=== PATIENT | male | born 1950 | race Caucasian/White ===

== ENCOUNTER 2017-10-24 14:38 | Emergency (ER) | payer MEDICARE, BC ==
[2017-10-24] MEDS ORDERED: ESCI20TA38 PO (15:04)
[2017-10-24 15:40] LABS: PLATELET COUNT, AUTOMATED 186 K/uL (150-450)
[2017-10-24] MEDS ORDERED: LORazepam 1 MG TAB PO ONE (16:35)
--- NOTE | 2017-10-24 17:38 | EKG ---
FACILITY: [facility] - [place] PATIENT NAME: NILESH SOUSA : [id number] MR: [id number] V: [id number] EXAM DATE: ORDERING PHYSICIAN: CRISTI GARCIA TECHNOLOGIST: Test Reason : Blood Pressure : / mmHG Vent. Rate : 073 BPM Atrial Rate : 073 BPM P-R Int : 162 ms QRS Dur : 112 ms QT Int : 434 ms P-R-T Axes : 019 054 002 degrees QTc Int : 478 ms Normal sinus rhythm but cannot rule out an atrial sensing ventricular pacing in the middle of the QRS T inversion consistent with inferior ischemia Possible Inferior infarct , age undetermined Abnormal ECG No previous ECGs available Confirmed by FCO FULLER ([id number]) on 10/24/2017 9:46:59 PM Referred By: Confirmed By:FCO FULLER
[2017-10-24 18:00] VITALS: BP 130/94
--- NOTE | 2017-10-24 18:02 | RADIOLOGY IMAGING REPORT ---
FACILITY: [facility] - [place], [place] PATIENT NAME: Vaibhav De Jesus : 1950 MR: [id number] V: [id number] EXAM DATE: ORDERING PHYSICIAN: CRISTI GARCIA TECHNOLOGIST: Location: [facility] [place] Patient: Vaibhav De Jesus : 1950 Visit/Account:[id number] Date of Sevice: 10/24/2017 CT OF THE BRAIN WITHOUT CONTRAST HISTORY: Acute change in personality. PROCEDURE: 3.0 mm contiguous axial sections were performed through the brain. Sagittal and coronal r eformats were submitted. COMPARISON: None FINDINGS: BRAIN: Brain and intracranial structures: There is no mass lesion or hemorrhage. Small foci of hypoattenuati on in the high right posterior white matter most likely reflect chronic ischemic change. There is a s imilar appearance on the left. The ventricles are normal in size without midline shift. Sulcal defini tion is normal. Orbits (included portions): Unremarkable. Scalp: Normal Skull: No fracture identified. The kernel is not optimal. Paranasal sinuses and mastoid air cells (included portions): Minimal mucosal thickening in the parana gabriela sinuses. IMPRESSION: 1. No evidence of acute intracranial abnormality by CT. 2. Minimal hypoattenuation in the high white matter of both hemispheres likely represents chronic isc hemic change. One of the following dose optimization techniques was utilized in the performance of this exam: Autom ated exposure control; adjustment of the mA and/or kV according to the patient's size; or use of an i terative reconstruction technique. Specific details can be referenced in the facility's radiology C T exam operational policy. Report Dictated By: Quita Post MD at 10/24/2017 5:52 PM Report E-Signed By: Quita Post MD at 10/24/2017 5:59 PM WSN:[id number]
--- NOTE | 2017-10-24 18:22 | ER Report ---
History and Physical Time Seen By MD: 16:00 Hx. of Stated Complaint: new onset anxiety/depression HPI/ROS This is a 67-year-old male who 3 months ago was diagnosed with pre-diabetes. Ever since that time he has become increasingly more anxious and depressed. He does not take medication for diabetes, but controls it with diet only. He has become so anxious that he is refusing to leave his home. He most recently released vague suicidal ideations to his family as well. He has also been experiencing involuntary limb shaking, not consistent with seizures, that his family says is associated with anxiety. His family is at the bedside, and they have encouraged the patient to be voluntarily admitted to behavioral health for depression, severe anxiety, and vague suicidal ideations. The patient does not deny his behavioral health issues. He denies any other physical complaints or problems. Remainder of the 14 system rev: Yes Allergies: Coded Allergies: Penicillins (Verified Allergy, Mild, 10/24/17) acetaminophen (Verified Allergy, Mild, 10/24/17) hydrocodone (Verified Allergy, Mild, 10/24/17) Home Meds Reported Medications Escitalopram Oxalate (LEXAPRO) 20 Mg Tablet, 20 MG PO QDAY, TAB 10/24/17 Reviewed Nurses Notes: Yes Old Medical Records Reviewed: Yes Hx Smoking: No Smoking Status: Never Smoker Exposure to Second Hand Smoke?: No Hx Substance Use Disorder: No Hx Alcohol Use: No Constitutional Vital Sign - Last 24 Hours 10/24/17 14:57 Temp 98.6 Pulse 80 Resp 16 B/P (MAP) 141/83 Pulse Ox 93 O2 Delivery Room Air Physical Exam General Appearance: The patient is alert, has no immediate need for airway protection and no current signs of toxicity. Eyes: Pupils equal and round no injection. Respiratory: Chest is non tender, lungs are clear to auscultation. Cardiac: regular rate and rhythm Gastrointestinal: Abdomen is soft and non tender, no masses, bowel sounds normal. Extremities have full range of motion and are non tender. He exhibits random shaking of his limbs. Skin: No rashes or lesions. DIFFERENTIAL DIAGNOSIS: After history and physical exam differential diagnosis was considered for depression including functional and major depression, situational depression, medication side effect, drugs and alcohol abuse. Medical Decision Making Data Points Result Diagram: 10/24/17 1526 10/24/17 1526 Laboratory Hematology Test 10/24/17 14:47 8/2/18 15:26 Urine Color Ayesha Urine Clarity Slightly-cloudy Urine pH 5.0 pH (4.8-9.5) Urine Specific [place] 1.026 Urine Protein Negative mg/dL (NEGATIVE) Urine Glucose (UA) Negative mg/dL (NEGATIVE) Urine Ketones Negative mg/dL (NEGATIVE) Urine Blood Negative (NEGATIVE) Urine Nitrite Negative (NEGATIVE) Urine Bilirubin Negative (NEGATIVE) Urine Urobilinogen 2.0 mg/dL (0.2-1.9) Urine Leukocyte Esterase Negative (NEGATIVE) Urine RBC 7 /HPF (0-2/HPF) Urine WBC 3 /HPF (0-5/HPF) Urine Squamous Epithelial Cells None /LPF (</=FEW) Urine Calcium Oxalate Crystals Moderate /HPF (NONE) Urine Bacteria Negative /HPF (NONE-FEW) Urine Hyaline Casts Few /LPF (NONE-FEW) Urine Mucus Few /HPF (NONE-FEW) Urine Opiates Screen Negative Urine Barbiturates Screen Negative Ur Tricyclic Antidepressants Screen Negative Urine Phencyclidine Screen Negative Urine Amphetamines Screen Negative Urine Benzodiazepines Screen Negative Urine Cocaine Screen Negative Urine Cannabinoids Screen Negative Red Blood Count 5.84 M/uL (4.00-5.60) Mean Corpuscular Volume 88.4 fL (80.0-96.0) Mean Corpuscular Hemoglobin 31.0 pg (26.0-33.0) Mean Corpuscular Hemoglobin Concent 35.1 g/dL (32.0-36.0) Red Cell Distribution Width 13.5 % (11.5-14.5) Mean Platelet Volume 9.9 fL (7.2-11.1) Neutrophils (%) (Auto) 66.5 % (39.4-72.5) Lymphocytes (%) (Auto) 23.1 % (17.6-49.6) Monocytes (%) (Auto) 7.8 % (4.1-12.4) Eosinophils (%) (Auto) 1.6 % (0.4-6.7) Basophils (%) (Auto) 1.0 % (0.3-1.4) Nucleated RBC Relative Count (auto) 0.0 /100WBC Neutrophils # (Auto) 5.5 K/uL (2.0-7.4) Lymphocytes # (Auto) 1.9 K/uL (1.3-3.6) Monocytes # (Auto) 0.6 K/uL (0.3-1.0) Eosinophils # (Auto) 0.1 K/uL (0.0-0.5) Basophils # (Auto) 0.1 K/uL (0.0-0.1) Nucleated RBC Absolute Count (auto) 0.00 K/uL Sodium Level 141 mmol/L (137-145) Potassium Level 3.8 mmol/L (3.5-5.0) Chloride Level 104 mmol/L (98-107) Carbon Dioxide Level 26 mmol/L (22-30) Blood Urea Nitrogen 15 mg/dl (9-21) Creatinine 0.90 mg/dl (0.66-1.25) Glomerular Filtration Rate Calc > 60.0 Random Glucose 106 mg/dl (75-110) Calcium Level 9.4 mg/dl (8.4-10.2) Magnesium Level 2.3 mg/dl (1.7-2.2) Total Bilirubin 1.2 mg/dl (0.2-1.3) Aspartate Amino Transf (AST/SGOT) 22 U/L (0-35) Alanine Aminotransferase (ALT/SGPT) 35 U/L (0-56) Alkaline Phosphatase 67 U/L (0-126) Total Protein 4.7 g/dl (6.3-8.2) Albumin 4.3 g/dl (3.5-5.0) Acetaminophen Level < 10 ug/ml Chemistry Test 10/24/17 14:47 10/24/17 15:26 Urine Color Ayesha Urine Clarity Slightly-cloudy Urine pH 5.0 pH (4.8-9.5) Urine Specific [place] 1.026 Urine Protein Negative mg/dL (NEGATIVE) Urine Glucose (UA) Negative mg/dL (NEGATIVE) Urine Ketones Negative mg/dL (NEGATIVE) Urine Blood Negative (NEGATIVE) Urine Nitrite Negative (NEGATIVE) Urine Bilirubin Negative (NEGATIVE) Urine Urobilinogen 2.0 mg/dL (0.2-1.9) Urine Leukocyte Esterase Negative (NEGATIVE) Urine RBC 7 /HPF (0-2/HPF) Urine WBC 3 /HPF (0-5/HPF) Urine Squamous Epithelial Cells None /LPF (</=FEW) Urine Calcium Oxalate Crystals Moderate /HPF (NONE) Urine Bacteria Negative /HPF (NONE-FEW) Urine Hyaline Casts Few /LPF (NONE-FEW) Urine Mucus Few /HPF (NONE-FEW) Urine Opiates Screen Negative Urine Barbiturates Screen Negative Ur Tricyclic Antidepressants Screen Negative Urine Phencyclidine Screen Negative Urine Amphetamines Screen Negative Urine Benzodiazepines Screen Negative Urine Cocaine Screen Negative Urine Cannabinoids Screen Negative White Blood Count 8.2 k/uL (4.5-11.0) Red Blood Count 5.84 M/uL (4.00-5.60) Hemoglobin 18.1 g/dL (14.0-18.0) Hematocrit 51.6 % (42.0-52.0) Mean Corpuscular Volume 88.4 fL (80.0-96.0) Mean Corpuscular Hemoglobin 31.0 pg (26.0-33.0) Mean Corpuscular Hemoglobin Concent 35.1 g/dL (32.0-36.0) Red Cell Distribution Width 13.5 % (11.5-14.5) Platelet Count 186 K/uL (150-450) Mean Platelet Volume 9.9 fL (7.2-11.1) Neutrophils (%) (Auto) 66.5 % (39.4-72.5) Lymphocytes (%) (Auto) 23.1 % (17.6-49.6) Monocytes (%) (Auto) 7.8 % (4.1-12.4) Eosinophils (%) (Auto) 1.6 % (0.4-6.7) Basophils (%) (Auto) 1.0 % (0.3-1.4) Nucleated RBC Relative Count (auto) 0.0 /100WBC Neutrophils # (Auto) 5.5 K/uL (2.0-7.4) Lymphocytes # (Auto) 1.9 K/uL (1.3-3.6) Monocytes # (Auto) 0.6 K/uL (0.3-1.0) Eosinophils # (Auto) 0.1 K/uL (0.0-0.5) Basophils # (Auto) 0.1 K/uL (0.0-0.1) Nucleated RBC Absolute Count (auto) 0.00 K/uL Glomerular Filtration Rate Calc > 60.0 Calcium Level 9.4 mg/dl (8.4-10.2) Magnesium Level 2.3 mg/dl (1.7-2.2) Total Bilirubin 1.2 mg/dl (0.2-1.3) Aspartate Amino Transf (AST/SGOT) 22 U/L (0-35) Alanine Aminotransferase (ALT/SGPT) 35 U/L (0-56) Alkaline Phosphatase 67 U/L (0-126) Total Protein 4.7 g/dl (6.3-8.2) Albumin 4.3 g/dl (3.5-5.0) Acetaminophen Level < 10 ug/ml Toxicology Test 10/24/17 14:47 10/24/17 15:26 Urine Opiates Screen Negative Urine Barbiturates Screen Negative Ur Tricyclic Antidepressants Screen Negative Urine Phencyclidine Screen Negative Urine Amphetamines Screen Negative Urine Benzodiazepines Screen Negative Urine Cocaine Screen Negative Urine Cannabinoids Screen Negative Acetaminophen Level < 10 ug/ml Urinalysis Test 10/24/17 14:47 Urine Color Ayesha Urine Clarity Slightly-cloudy Urine pH 5.0 pH (4.8-9.5) Urine Specific [place] 1.026 Urine Protein Negative mg/dL (NEGATIVE) Urine Glucose (UA) Negative mg/dL (NEGATIVE) Urine Ketones Negative mg/dL (NEGATIVE) Urine Blood Negative (NEGATIVE) Urine Nitrite Negative (NEGATIVE) Urine Bilirubin Negative (NEGATIVE) Urine Urobilinogen 2.0 mg/dL (0.2-1.9) Urine Leukocyte Esterase Negative (NEGATIVE) Urine RBC 7 /HPF (0-2/HPF) Urine WBC 3 /HPF (0-5/HPF) Urine Squamous Epithelial Cells None /LPF (</=FEW) Urine Calcium Oxalate Crystals Moderate /HPF (NONE) Urine Bacteria Negative /HPF (NONE-FEW) Urine Hyaline Casts Few /LPF (NONE-FEW) Urine Mucus Few /HPF (NONE-FEW) EKG/Imaging EKG Interpretation 12 lead EKG: Rhythm: normal sinus rhythm [place]: normal QRS: Incomplete right bundle-branch block with wide QRS ST segments: Nonspecific T wave changes [ ] Imaging Results: CT scan of the head was obtained. The results of the study are normal. The study was read by the radiologist. I viewed the images myself on the PACS system. ED Course/Re-evaluation ED Course 67-year-old male with no history of behavioral health problems self presents to the emergency department with his family at his side facing severe anxiety and vague suicidal ideations. The symptoms have been ongoing for 3 months since being diagnosed with prediabetes. He controls his prediabetes with diet and does not take any medications. His family states that he has become so anxious that he will not leave the house. He was started on Lexapro but with the patient and his family say that it has not made a difference. I do not find any organic cause for this acute change in behavior. His anxiety was minimally controlled with 2 mg of Ativan by mouth. He will be admitted to behavioral health for further workup. Decision to Disposition Date: Oct 24, 2017 Decision to Disposition Time: 18:21 Depart Departure Latest Vital Signs Vital Signs Date Time Temp Pulse Resp B/P (MAP) Pulse Ox O2 Delivery O2 Flow Rate FiO2 10/24/17 14:57 98.6 80 16 141/83 93 Room Air Impression: Primary Impression: Anxiety and depression Additional Impression: Passive suicidal ideations Condition: Improved Disposition: XFER TO [facility] Problem Qualifiers CRISTI GARCIA MD Oct 24, 2017 18:22
== END 2017-10-24 17:10 ==
LOC: ER 15:01
DX: F41.9 Anxiety disorder, unspecified (principal); F32.9 Major depressive disorder, single episode, unspecified; R45.851 Suicidal ideations; R25.1 Tremor, unspecified
CPT/HCPCS: 70450; 80305; 81001; 83735; 84443; 85025; 99284; A9270; G0480; 80329; 82040; 82247; 82310; 82374; 82435; 82565; 82947; 84075; 84132; 84155; 84295; 84450; 84460; 84520

== ENCOUNTER 2017-10-24 17:08 | Inpatient (IN) | payer MEDICARE, BC ==
[~2017-10-24] VITALS: Ht 182.9 cm; Wt 93.4 kg
[~2017-10-24 17:08] MED LIST: ESCI20TA38 PO
[2017-10-24] MEDS ORDERED: DIAZEPAM 10 MG TAB PO PRN (18:55)
[2017-10-24] MEDS ORDERED: MAG HYD/AL HYD/SIMETH 30ML UDC PO PRN (18:55)
[2017-10-24] MEDS ORDERED: ACETAMINOPHEN 325 MG TAB PO PRN (18:55)
[2017-10-25 06:31] VITALS: BP 140/84
[2017-10-25] MEDS: MULTIVITAMINS TAB PO SCH (08:09)
[2017-10-25] MEDS: DIAZEPAM 5 MG TAB PO SCH ×2 (12:30→21:00)
[2017-10-25 13:05] VITALS: BP 116/70
[2017-10-25 16:15] VITALS: BP 110/79
--- NOTE | 2017-10-25 16:15 | HISTORY AND PHYSICAL ---
DATE OF ADMISSION: October 24, 2017 Patient was seen at approximately 1000 hours on the a.m. of October 25, 2017 for note concerning this dictation. PRESENTING PROBLEM/CHIEF COMPLAINT Recent suicidal ideation and increasing anxiety. HISTORY OF PRESENT ILLNESS This is a very pleasant 67-year-old male who reports experiencing significant anxiety and following depression symptoms starting about 3 months ago. Patient interviewed, accompanied by his daughter and his . Patient very open and honest historian. Patient reports even thinking of suicide at times. Patient mentioning that before three months ago everything in his life was going fine. It was about this time patient was diagnosed with preclinical diabetic state. Patient's A1c was only mildly elevated at the time around 6.5 or so, however, patient has witnessed his mother from significant diabetic condition and he was oldest child and was caretaking of her at the time, approximately three and a half years go, and this bothers him tremendously. Since that time patient has lost a significant amount of weight intentionally. Patient's A1c is now within normal range, according to his who is able to remember the last lab report. Patient, however, has lost his [place] license. 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 Patient then started becoming worried about financial stresses his family would incur in the absence of that income. Patient gives a long history of again being the oldest child and some controlling type tendencies in general. Patient is organized, can be a worrier at times throughout his life. Patient certainly having anxious-like symptoms that are long-standing in nature, recently elevated leading to depression, however, patient has a very supportive relationship with his daughter, present in the room as well as his . Patient denies any other symptoms of psychiatric concern again, other than the anxiety provoking symptoms of watching his mother have a stroke three and a half years ago. She has now passed secondary to significant diabetic condition. MENTAL HEALTH HISTORY Patient has never been in a psychiatric lamb before. Patient in the past had been on Cymbalta, in the remote past. This was mainly due for pain from work accident. The patient has been seeing [facility] in [place] and has been on Lexapro at 20 mg a day for the last three weeks. Patient denies any suicide attempts previously. FAMILY PSYCHIATRIC HISTORY Significant for patient's' grandfather committed suicide, and grandmother may have had some depressive symptoms. Denies any other psychiatric concerns in the family. PAST MEDICAL HISTORY Patient has had multiple surgeries following an accident that injured his ankle in the past. He has had some ongoing chronic pain associated with back surgeries as well in the past. Patient again relatively recently having an elevated A1c, however, patient seems to have taken care of this with diet and weight loss alone. Patient has allergies to VICODIN and PENICILLIN. SOCIAL HISTORY Patient was born in [place], raised there and in [place], [place]. His parents were at the time of his . They are now both passed. They had a good relationship growing up, free of any emotional, physical, sexual abuse. Patient has four siblings, he is the oldest. Patient is a high school graduate. Patient went to [employer] [facility] [place] after [place] school. He has been 47 years. Patient has four children, two sons and two daughters, all with good relationships. Patient lives in [place] with his . LEGAL HISTORY Patient has no legal history. SUBSTANCE ABUSE HISTORY Patient enjoys a beer or a glass of wine once in a while. It has never been a problem. Recently he has stopped all of that secondary to concerns of diabetic condition. Patient denies any other history of substance abuse. PHYSICAL EXAMINATION GENERAL: Please see emergency room note. Notable for a very anxious 67-year- old male, calming down quickly with the administration of benzodiazepine. Patient very cooperative. VITAL SIGNS: At the time of admission, temperature 98.6, pulse 80, respiratory rate 16, blood pressure 141/83 and pulse oximetry 93 on room air. LABORATORY DATA CBC notable for red blood cells slightly elevated at 5.84, hemoglobin 18.1 and elevated. Chem panel notable for a magnesium slightly elevated at 2.3, otherwise unremarkable. TSH 2.63. Urinalysis overall unremarkable. Toxicology screen negative. Patient's vitamin D 25-hydroxy noted to be at 55. Free T4 0.82 and free T3 pending. MENTAL STATUS EXAMINATION GENERAL APPEARANCE, BEHAVIOR AND ATTITUDE: This is a well-groomed 67-year-old male who appears somewhat younger than stated age. Patient showing some psychomotor agitation with hand wringing during interview. Very calm, polite, making good eye contact. No periods of tearfulness. Interacting well with his , his daughter and treatment team staff. . SPEECH: Within normal limits, regular rate, rhythm, volume and tone. MOOD: Described as anxious. AFFECT: Anxious appearing.. THOUGHT PROCESSES: Goal directed and logical. No loose associations or flight of ideas. THOUGHT CONTENT: Free of auditory or visual hallucinations, ideas of reference , thought broadcastings, delusions, obsessions, compulsions. Patient admitting to having brief suicidal thoughts. Denying homicidal ideation. SENSORIUM: Clear. COGNITION: Alert and oriented to person, place, time and situation. MEMORY: Immediate, recent and remote estimated intact. INTELLIGENCE: Average based on interview. INSIGHT AND JUDGMENT: Considered grossly intact. Patient presenting voluntarily for treatment and wanting help. ASSESSMENT This is a very pleasant 67-year-old male, interacting well with his family and staff here at the Behavioral Health Unit. At this time the patient seems to be a good candidate for some low dose benzodiazepines initially. Lexapro may be a good medication for this patient as well. However, I think we will try to use Luvox at this time and stop Lexapro. Hopefully Luvox will have further sedating effects that can help patient relax and may be better overall for underlying long-standing anxiety in this patient. We will use Valium for half life as well, so no withdrawal anxiety will be noted. Will continue to engage patient in cognitive behavioral therapy as well, of which the patient is an excellent candidate. DIAGNOSES PER DSM-V Generalized anxiety disorder. Adjustment disorder with anxious and depressed mood. Patient having very supportive family. PLAN 1. Admit to the unit. 2. Necessary precautions to be implemented. 3. Patient will participate in individual and group therapy. 4. Medications to be adjusted, titrated accordingly. 5. Collateral information to be obtained. 6. Further lab work pending. 7. Estimated length of stay three to five days. MTDD
[2017-10-25] MEDS ORDERED: fluvoxaMINE MALEATE 50 MG TAB PO SCH (21:00)
[2017-10-26 06:10] VITALS: BP 137/84
--- NOTE | 2017-10-26 07:28 | EKG ---
FACILITY: [facility] - [place] PATIENT NAME: NILESH SOUSA : [id number] MR: [id number] V: [id number] EXAM DATE: ORDERING PHYSICIAN: RYAN MAX TECHNOLOGIST: PORTIA Talavera Reason : PREVIOUS ABNORMAL Blood Pressure : / mmHG Vent. Rate : 053 BPM Atrial Rate : 053 BPM P-R Int : 188 ms QRS Dur : 102 ms QT Int : 484 ms P-R-T Axes : 057 057 030 degrees QTc Int : 454 ms Sinus bradycardia Incomplete RBBB Otherwise normal ECG When compared with ECG of 24-OCT-2017 17:19, No significant change was found Confirmed by Mason Garcia ([id number]) on 10/26/2017 5:52:11 PM Referred By: MANSOOR Confirmed By:Mason Sotomayor
[2017-10-26] MEDS: OMEGA-3 500 MG CAP PO SCH (08:21)
[2017-10-26] MEDS: CHOLECALCIFEROL 1000 UNIT TAB PO SCH (08:21)
[2017-10-26] MEDS: MULTIVITAMINS TAB PO SCH (08:21)
--- NOTE | 2017-10-26 11:06 | BHS Progress Note ---
BHS - Subjective Progress Notes Subjective "Im doing better. The anxiety I was having is paralyzing."' Anxiety increasing "Right now I'm pretty anxious right now." Denies depression/suicidal ideation Denies anger Energy level fair to low Appetite sufficient Reports some short term memory deficits Denies side effects from Luvox or Valium Suicidal Ideation: None Homicidal Ideation: None BHS - Objective Physical Exam Vital Signs Vital Signs Date Time Temp Pulse Resp B/P (MAP) Pulse Ox O2 Delivery O2 Flow Rate FiO2 10/26/17 06:10 62 137/84 (101) 93 Room Air 10/25/17 16:15 98.6 Muscle Strength and Tone: WNL Gait and Station: Steady BHS Medications Reviewed: Side Effects, Benefits of Medication, Risks Allergies Reviewed: Yes Mental Status Exam General Appearance: Casual, Well Groomed, Good Eye Contact, Cooperative, Polite , Good Interaction Speech: Clear, Spontaneous, Normal Rate, Normal Rhythm, Normal Volume, Normal Tone Mood: Euthymic Affect: Full and Appropriate, Anxious Thought Process: Organized, Logical, Goal Directed, No Loose Associations, No Flight of Ideas Thought Content: No Suicidal Ideation, No Homicidal Ideation, No Delusions, No Auditory Halllucinations, No Visual Hallucinations, No Ideas of Reference, No Obsessions, No Compulsions Sensorium: Clear Cognition: Alert & Oriented-Person, Alert & Oriented-Place, Alert & Oriented- Time, Sayry-Rkcgawkh-Djrdjrpvf Memory: Immediate, Recent, Remote, Other (reports some short term memory deficits although unable to give examples, assists w/med reminding ) Intelligence: Average Insight Judgment: Intact, Appropriate, Good Microbiology ED Medications Multivitamins (Thera-M Enhanced Tab (Or Equiv)) 1 each QDAY Last administered on 10/26/17at 08:21; Admin Dose 1 EACH; Start 10/25/17 at 09:00; Stop 11/24/17 at 08 :59 Diazepam (Valium(*) 10 Mg Tab (Or Equiv)) 10 mg Q6H PRN Last administered on 10/24/17at 20:51; Admin Dose 10 MG; Start 10/24/17 at 18:55; Stop 11/07/17 at 18:54 Fluvoxamine Maleate (Luvox 50 Mg Tab (Or Equiv)) 100 mg QHS Last administered on 10/25/17at 20:53; Admin Dose 100 MG; Start 10/25/17 at 21:00; Stop 11/24/17 at 20 :59 Uqybo-3-Kilw Ethyl Esters (Fish Oil 500 Mg Capsule) 1,000 mg QDAY Last administered on 10/26/17at 08:21; Admin Dose 1,000 MG; Start 10/26/17 at 09:00; Stop 11/25/17 at 08:59 Cholecalciferol (Vitamin D3 1000 Unit Tab) 1,000 unit QDAY Last administered on 10/26/17at 08:21; Admin Dose 1,000 UNIT; Start 10/26/17 at 09:00; Stop 11/25/17 at 08:59 Diazepam (Valium(*) 5 Mg Tab (Or Equiv)) 5 mg NOON Last administered on at 12:30; Admin Dose 5 MG; Start 10/25/17 at 12:00; Stop 11/08/17 at 11:59 Diazepam (Valium(*) 5 Mg Tab (Or Equiv)) 10 mg QHS Last administered on at 21:00; Admin Dose 10 MG; Start 10/25/17 at 21:00; Stop 11/08/17 at 20:59 Imaging Laboratory Tests 10/24/17 15:26: Vitamin D 25-Hydroxy 55, Free Thyroxine 0.82 Additional Findings/Notes: Laboratory Tests Test 10/24/17 14:47 10/24/17 15:26 Range/Units Urine Color Ayesha Urine Clarity Slightly-cloudy Urine pH 5.0 4.8-9.5 pH Urine Specific Hugo 1.026 Urine Protein Negative NEGATIVE mg/dL Urine Glucose (UA) Negative NEGATIVE mg/dL Urine Ketones Negative NEGATIVE mg/dL Urine Blood Negative NEGATIVE Urine Nitrite Negative NEGATIVE Urine Bilirubin Negative NEGATIVE Urine Urobilinogen 2.0 0.2-1.9 mg/dL Urine Leukocyte Esterase Negative NEGATIVE Urine RBC 7 0-2/HPF /HPF Urine WBC 3 0-5/HPF /HPF Urine Squamous Epithelial Cells None </=FEW /LPF Urine Calcium Oxalate Crystals Moderate NONE /HPF Urine Bacteria Negative NONE-FEW /HPF Urine Hyaline Casts Few NONE-FEW /LPF Urine Mucus Few NONE-FEW /HPF Urine Opiates Screen Negative Urine Barbiturates Screen Negative Ur Tricyclic Antidepressants Screen Negative Urine Phencyclidine Screen Negative Urine Amphetamines Screen Negative Urine Benzodiazepines Screen Negative Urine Cocaine Screen Negative Urine Cannabinoids Screen Negative White Blood Count 8.2 4.5-11.0 k/uL Red Blood Count 5.84 4.00-5.60 M/uL Hemoglobin 18.1 14.0-18.0 g/dL Hematocrit 51.6 42.0-52.0 % Mean Corpuscular Volume 88.4 80.0-96.0 fL Mean Corpuscular Hemoglobin 31.0 26.0-33.0 pg Mean Corpuscular Hemoglobin Concent 35.1 32.0-36.0 g/dL Red Cell Distribution Width 13.5 11.5-14.5 % Platelet Count 186 150-450 K/uL Mean Platelet Volume 9.9 7.2-11.1 fL Neutrophils (%) (Auto) 66.5 39.4-72.5 % Lymphocytes (%) (Auto) 23.1 17.6-49.6 % Monocytes (%) (Auto) 7.8 4.1-12.4 % Eosinophils (%) (Auto) 1.6 0.4-6.7 % Basophils (%) (Auto) 1.0 0.3-1.4 % Nucleated RBC Relative Count (auto) 0.0 /100WBC Neutrophils # (Auto) 5.5 2.0-7.4 K/uL Lymphocytes # (Auto) 1.9 1.3-3.6 K/uL Monocytes # (Auto) 0.6 0.3-1.0 K/uL Eosinophils # (Auto) 0.1 0.0-0.5 K/uL Basophils # (Auto) 0.1 0.0-0.1 K/uL Nucleated RBC Absolute Count (auto) 0.00 K/uL Sodium Level 141 137-145 mmol/L Potassium Level 3.8 3.5-5.0 mmol/L Chloride Level 104 98-107 mmol/L Carbon Dioxide Level 26 22-30 mmol/L Blood Urea Nitrogen 15 9-21 mg/dl Creatinine 0.90 0.66-1.25 mg/dl Glomerular Filtration Rate Calc > 60.0 Random Glucose 106 75-110 mg/dl Calcium Level 9.4 8.4-10.2 mg/dl Magnesium Level 2.3 1.7-2.2 mg/dl Total Bilirubin 1.2 0.2-1.3 mg/dl Aspartate Amino Transf (AST/SGOT) 22 0-35 U/L Alanine Aminotransferase (ALT/SGPT) 35 0-56 U/L Alkaline Phosphatase 67 0-126 U/L Total Protein 4.7 6.3-8.2 g/dl Albumin 4.3 3.5-5.0 g/dl Vitamin D 25-Hydroxy 55 30-100 ng/ml Thyroid Stimulating Hormone (TSH) 2.63 0.46-4.68 uIU/ml Free Thyroxine 0.82 0.78-2.19 ng/dl Acetaminophen Level < 10 ug/ml S Assessment and Plan Arnn-iq-Ryfc Encounter Date: Oct 26, 2017 Hiif-tk-Olmr Encounter Time: 10:50 [facility] Plan: Admit to Unit, Necessary Precautions, Individual/Group Therapy, Admin /Titrate Meds, Educate Patient Multpiple Antipsychotics Used: No Problems: (1) Generalized anxiety disorder Status: Chronic Condition Continue Valium bid Increase Luvox Continue individual and/group therapy Relapse prevention/wellness and recovery plan to be completed RIO GOLDMAN NP Oct 26, 2017 11:06
[2017-10-26] MEDS: DIAZEPAM 5 MG TAB PO SCH ×2 (12:05→21:29)
[2017-10-26 14:15] VITALS: BP 108/68
[2017-10-26 20:12] VITALS: BP 136/81
[2017-10-26] MEDS: fluvoxaMINE MALEATE 50 MG TAB PO SCH (21:29)
[2017-10-27 06:17] VITALS: BP 131/85
[2017-10-27] MEDS: CHOLECALCIFEROL 1000 UNIT TAB PO SCH (08:03)
[2017-10-27] MEDS: OMEGA-3 500 MG CAP PO SCH (08:03)
[2017-10-27] MEDS: MULTIVITAMINS TAB PO SCH (08:03)
--- NOTE | 2017-10-27 09:26 | BHS Progress Note ---
BHS - Subjective Progress Notes Subjective "I feel out of control. I feel hopeless about the future. I don't know what to do " Sleep reported as sufficient Energy level reported as low Rating anxiety 6/10 Rating depression 5/10, reports hopelessness about future Suicidal Ideation: None Homicidal Ideation: None BHS - Objective Physical Exam Vital Signs Vital Signs Date Time Temp Pulse Resp B/P (MAP) Pulse Ox O2 Delivery O2 Flow Rate FiO2 10/27/17 06:17 99.1 66 131/85 (100) 95 Room Air 10/26/17 14:15 16 Muscle Strength and Tone: WNL Gait and Station: Steady BHS Medications Reviewed: Side Effects, Benefits of Medication, Risks Allergies Reviewed: Yes Mental Status Exam General Appearance: Casual, Well Groomed, Good Eye Contact, Cooperative, Polite , Good Interaction Speech: Clear, Spontaneous, Normal Rate, Normal Rhythm, Normal Volume, Normal Tone Mood: Euthymic Affect: Full and Appropriate, Anxious Thought Process: Organized, Logical, Goal Directed, No Loose Associations, No Flight of Ideas Thought Content: No Suicidal Ideation, No Homicidal Ideation, No Delusions, No Auditory Halllucinations, No Visual Hallucinations, No Ideas of Reference, No Obsessions, No Compulsions Sensorium: Clear Cognition: Alert & Oriented-Person, Alert & Oriented-Place, Alert & Oriented- Time, Lwyfv-Gcbkteiw-Xrwlpzttr Memory: Immediate, Recent, Remote, Other (reports some short term memory deficits although unable to give examples, assists w/med reminding ) Intelligence: Average Insight Judgment: Intact, Appropriate, Fair, No Good Lab ED Medications Fluvoxamine Maleate (Luvox 50 Mg Tab (Or Equiv)) 100 mg QHS Last administered on 10/25/17at 20:53; Admin Dose 100 MG; Start 10/25/17 at 21:00; Stop 10/26/17 at 13 :08; Status DC Tcgic-4-Dybz Ethyl Esters (Fish Oil 500 Mg Capsule) 1,000 mg QDAY Last administered on 10/27/17at 08:03; Admin Dose 1,000 MG; Start 10/26/17 at 09:00; Stop 11/25/17 at 08:59 Cholecalciferol (Vitamin D3 1000 Unit Tab) 1,000 unit QDAY Last administered on 10/27/17at 08:03; Admin Dose 1,000 UNIT; Start 10/26/17 at 09:00; Stop 11/25/17 at 08:59 Diazepam (Valium(*) 5 Mg Tab (Or Equiv)) 5 mg NOON Last administered on at 12:05; Admin Dose 5 MG; Start 10/25/17 at 12:00; Stop 11/08/17 at 11:59 Diazepam (Valium(*) 5 Mg Tab (Or Equiv)) 10 mg QHS Last administered on at 21:29; Admin Dose 10 MG; Start 10/25/17 at 21:00; Stop 11/08/17 at 20:59 Fluvoxamine Maleate (Luvox 50 Mg Tab (Or Equiv)) 150 mg QHS Last administered on 10/26/17at 21:29; Admin Dose 150 MG; Start 10/26/17 at 21:00; Stop 11/25/17 at 20 :59 Microbiology Hematology Test 10/24/17 15:26 Vitamin D 25-Hydroxy 55 ng/ml (30-100) Free Thyroxine 0.82 ng/dl (0.78-2.19) Free Triiodothyronine 2.8 pg/mL (2.4-4.2) Chemistry Test 10/24/17 15:26 Vitamin D 25-Hydroxy 55 ng/ml (30-100) Free Thyroxine 0.82 ng/dl (0.78-2.19) Free Triiodothyronine 2.8 pg/mL (2.4-4.2) [facility] Assessment and Plan Gyzr-pt-Gbbz Encounter Date: Oct 27, 2017 Ipiw-du-Odod Encounter Time: 09:23 [facility] Plan: Admit to Unit, Necessary Precautions, Individual/Group Therapy, Admin /Titrate Meds, Educate Patient Multpiple Antipsychotics Used: No Problems: (1) Generalized anxiety disorder Status: Chronic (2) Adjustment disorder with mixed anxiety and depressed mood Status: Acute Condition Continue Valium and Luvox, continue current treatment Encourage utilization of coping mechanisms RIO GOLDMAN NP Oct 27, 2017 09:26
[2017-10-27] MEDS: DIAZEPAM 5 MG TAB PO SCH ×2 (11:48→20:56)
[2017-10-27 11:55] VITALS: BP 120/72
[2017-10-27] MEDS: fluvoxaMINE MALEATE 50 MG TAB PO SCH (20:56)
[2017-10-27 21:00] VITALS: BP 105/96
[2017-10-28 05:58] VITALS: BP 135/76
[2017-10-28] MEDS: OMEGA-3 500 MG CAP PO SCH (08:18)
[2017-10-28] MEDS: CHOLECALCIFEROL 1000 UNIT TAB PO SCH (08:18)
[2017-10-28] MEDS: MULTIVITAMINS TAB PO SCH (08:18)
[2017-10-28] MEDS ORDERED: DIA5 PO ×2 (10:03)
[2017-10-28] MEDS ORDERED: FLUV150C PO (10:03)
[2017-10-28] MEDS ORDERED: OMEG1CAP39 PO (10:04)
[2017-10-28] MEDS ORDERED: MULT-859 PO (10:05)
--- NOTE | 2017-10-29 17:30 | DISCHARGE SUMMARY ---
DATE OF ADMISSION: October 24, 2017 DATE OF DISCHARGE: October 28, 2017 Patient was seen at approximately 9:00 a.m. on October 28, 2017, for note concerning this dictation. FINAL DIAGNOSES 1. Generalized anxiety disorder. 2. Adjustment disorder with anxious and depressed mood. 3. Patient known to have very supportive family. REASON FOR ADMISSION This is a very pleasant, 67-year-old male, very close to his family. Patient presented with increasing anxiety and depressive symptoms following identifiable life stressors. Please see H and P for full details. Patient has an underlying generalized anxiety disorder presentation that has probably been life long. Patient was given Luvox and Valium with good results and quickly improved. Patient took an active role in his treatment, and patient was discharged to home after suicidal ideation resolved. PHYSICAL EXAMINATION Please see emergency room note. Notable for: GENERAL: Healthy-appearing, 67-year-old male. No acute medical distress. VITAL SIGNS: Vital signs at time of admission, temperature 98.6, pulse 80, respiratory rate 16, blood pressure 141/83, and pulse oximetry 93% on room air. At time of discharge from [facility], temperature 99.0, pulse 61, respiratory rate 15, blood pressure 135/76, and pulse oximetry 94% on room air. LABORATORY DATA Free T4 noted to be 0.82 and normal range, free T3 of 2.8. Vitamin D of 55 at time of admission. CBC overall unremarkable. CMP: Magnesium slightly elevated to 2.3; otherwise unremarkable. TSH 2.63. Urinalysis unremarkable overall. Toxicology screen negative with an undetectable serum alcohol level. MENTAL STATUS EXAMINATION AT TIME OF DISCHARGE GENERAL APPEARANCE, BEHAVIOR, AND ATTITUDE: This is a very polite, 67-year-old male, well groomed, making good eye contact. No bizarre mannerisms or tics. Interacting good with family members, including his and his daughter, and treatment team staff and this provider. No periods of tearfulness. SPEECH: Within normal limits. Regular rate, rhythm, volume, and tone. MOOD: Described as improved. AFFECT: Minimal anxiety present. THOUGHT PROCESSES: Goal directed, logical. No loose associations or flight of ideas. THOUGHT CONTENT: Free of auditory or visual hallucinations, ideas of reference , thought broadcasting, delusions, obsessions, compulsions. Negative for any suicidal or homicidal ideations. SENSORIUM: Clear. COGNITION: Alert and oriented to person, place, time, situation. MEMORY: Immediate, recent, and remote estimated intact. INTELLIGENCE: Average based on interview. INSIGHT AND JUDGMENT: Considered grossly intact and appropriate for ongoing outpatient care. RESULTS OF TESTING IMAGING: Head CT was done which showed no evidence of acute intracranial abnormality with minimal hypoattenuation in the high white matter of both hemispheres which likely represented chronic ischemic change. LABORATORY DATA: See above. CONSULTATIONS None. TREATMENT Patient received medications, participate in individual and group therapy. Patient was prescribed outpatient Lexapro. It was thought that Luvox might give a better response in this patient with a high likelihood of an underlying longstanding anxiety disorder. Luvox was titrated to 150 mg at bedtime with good results. Simultaneous Valium was given for its long half life for anxiety as well in minimal dosing. Patient continued to improve, took an active role in therapy. CONDITION OF PATIENT ON DISCHARGE Stable, considered minimal risk to himself or others and appropriate for ongoing outpatient care. DISPOSITION Patient discharged to home in the care of his family. He would follow up with outpatient medications and therapy as prescribed or as scheduled. He would take medications as prescribed. Patient would stop Lexapro and would continue diazepam 5 mg at lunch and diazepam 10 mg at bedtime, fluvoxamine 150 mg at bedtime, multivitamin with minerals daily, and omega-3 fish oil daily. Risks, benefits, and alternatives of above discharge plan were discussed. Informed consent was given to proceed with above discharge plan by this competent patient and patient's family present at time of discharge. Patient was given the crisis line should symptoms return. FANG
== END 2017-10-28 10:35 | disposition home or self-care (01) | DRG 880 ==
LOC: BHS 17:08
PROVIDERS: ADMIT Psychiatry & Neurology Psychiatry; ATTEND Psychiatry & Neurology Psychiatry
DX: F41.1 Generalized anxiety disorder (principal); R45.851 Suicidal ideations; F43.23 Adjustment disorder with mixed anxiety and depressed mood; E11.9 Type 2 diabetes mellitus without complications; Z81.8 Family history of other mental and behavioral disorders; Z83.3 Family history of diabetes mellitus; Z56.0 Unemployment, unspecified
CPT/HCPCS: 36415; 70450; 80305; 80329; 81001; 82040; 82247; 82306; 82310; 82374; 82435; 82565; 82947; 83735; 84075; 84132; 84155; 84295; 84439; 84443; 84450; 84460; 84481; 84520; 85025; 93005; 99284